=== PATIENT | female | born 1975 | race Caucasian/White ===

== ENCOUNTER 2019-03-30 17:43 | Emergency (ER) | payer BC ==
[~2019-03-30] VITALS: Ht 175.3 cm; Wt 71.7 kg
[~2019-03-30 17:43] MED LIST: NAPROSYN500 MG PO; ROBAXIN500 MG PO
[2019-03-30 17:44] VITALS: BP 113/62
[2019-03-30] MEDS ORDERED: COZAAR 25 MG TA25 M1 PO (17:50)
[2019-03-30] MEDS ORDERED: CLONAZEPAM 1 MG1 M1 PO (17:50)
[2019-03-30] MEDS ORDERED: CHLORTHALIDONE25 MG PO (17:50)
[2019-03-30] MEDS ORDERED: CLONAZEPAM 0.50.5 M1 PO (17:51)
[2019-03-30] MEDS ORDERED: AMBIEN 5 MG TABL5 M1 PO (17:51)
[2019-03-30] MEDS ORDERED: ADVAIR 250-501 EACH INH (17:51)
[2019-03-30] MEDS ORDERED: NORCO 5-325 TA1 EAC1 PO (18:51)
== END 2019-03-30 19:13 | disposition home or self-care (01) ==
LOC: ER 17:43
DX: S80.01XA Contusion of right knee, initial encounter (principal); J45.909 Unspecified asthma, uncomplicated; V89.2XXA Person injured in unspecified motor-vehicle accident, traffic, initial encounter; Y93.89 Activity, other specified; Y92.89 Other specified places as the place of occurrence of the external cause; Y99.8 Other external cause status